=== PATIENT | female | born 1995 | race Caucasian/White ===

== ENCOUNTER 2020-01-05 22:48 | Emergency (ER) | payer OTHER ==
[~2020-01-05] VITALS: Ht 170.2 cm; Wt 81.7 kg
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
[2020-01-05] MEDS ORDERED: HYDR-83 PO (23:45)
[2020-01-05 23:58] VITALS: BP 129/77
--- NOTE | 2020-01-06 05:44 | Diagnostic Imaging Report ---
EXAMINATION: Right tibia and fibula INDICATION: Injury, leg pain AP and lateral views were obtained. There is an oblique slightly displaced fracture of the distal 3rd of the fibula. No other fracture or acute bony abnormality is noted. The knee and ankle joints are well maintained. The soft tissues are unremarkable. IMPRESSION: There is an oblique slightly displaced fracture of the distal 3rd of the fibula. There is no acute bony abnormality noted otherwise. Dictated by: Dictated on workstation # [id number]
== END 2020-01-05 23:58 | disposition home or self-care (01) ==
LOC: ER FS 22:50
DX: S82.401A Unspecified fracture of shaft of right fibula, initial encounter for closed fracture (principal); S80.211A Abrasion, right knee, initial encounter; W09.0XXA Fall on or from playground slide, initial encounter; Y93.64 Activity, baseball
CPT/HCPCS: 73590; 84703

== ENCOUNTER 2021-12-27 20:28 | Emergency (ER) | payer BC ==
[~2021-12-27 20:28] MED LIST: ACHD5005 PO
[2021-12-27] MEDS ORDERED: IBUPROFEN 800 MG (MOTRIN) TAB PO STA (20:44)
[2021-12-27] MEDS ORDERED: TETANUS,DIPTH,PERTUSS P/F (BOOSTRIX) 0.5 ML VIAL IM ONE (20:45)
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
--- NOTE | 2021-12-27 21:07 | Diagnostic Imaging Report ---
FOREARM 2 VIEW LEFT INDICATION: Left forearm pain after injury COMPARISON: None available. TECHNIQUE: 2 views of left forearm FINDINGS: No acute fracture. Alignment is normal. No radiopaque foreign body or soft tissue gas. IMPRESSION: No fracture within the left forearm. Dictated by: Dictated on workstation # [id number]
--- NOTE | 2021-12-27 21:08 | Diagnostic Imaging Report ---
ELBOW 3 VIEW LEFT INDICATION: Left elbow pain after injury COMPARISON: None available. TECHNIQUE: 3 views of left elbow FINDINGS: No elbow joint effusion. No acute fracture. Alignment is normal. No radiopaque foreign body. IMPRESSION: No acute fracture about the left elbow. Dictated by: Dictated on workstation # [id number]
[2021-12-27] MEDS ORDERED: IBUP-1780 PO (21:17)
[2021-12-27 21:19] VITALS: BP 121/74
== END 2021-12-27 21:28 | disposition home or self-care (01) ==
LOC: EDUNIT# 20:28 → ER FS 20:30
DX: S80.02XA Contusion of left knee, initial encounter (principal); S50.02XA Contusion of left elbow, initial encounter; Z23 Encounter for immunization; W05.2XXA Fall from non-moving motorized mobility scooter, initial encounter; Y93.I9 Activity, other involving external motion; Y92.410 Unspecified street and highway as the place of occurrence of the external cause
CPT/HCPCS: 73080; 73090; 99283; A4565; 90715